=== PATIENT | male | born 1985 | race African-American/Black ===

== ENCOUNTER 2017-04-19 23:50 | Emergency (ER) | payer SELFPAY ==
[~2017-04-19] VITALS: Ht 185.4 cm; Wt 73.0 kg
[2017-04-20] MEDS ORDERED: BACITRACIN ZINC OINT UDPKT TOP ONE (01:45)
[2017-04-20 02:05] VITALS: BP 114/66
[2017-04-20] MEDS ORDERED: TETANUS, DIPHTHERIA, PERTUSSIS VAC/PF 0.5ML (>7YR OLD) IM ONE (02:15)
== END 2017-04-20 02:40 | disposition home or self-care (01) ==
LOC: ER 23:50
DX: S90.822A Blister (nonthermal), left foot, initial encounter (principal); X58.XXXA Exposure to other specified factors, initial encounter; Y93.89 Activity, other specified; Y99.8 Other external cause status; Y92.89 Other specified places as the place of occurrence of the external cause
CPT/HCPCS: 90471; 90715; 99283; Z7610

== ENCOUNTER 2018-04-26 15:57 | Emergency (ER) | payer SELFPAY ==
[~2018-04-26] VITALS: Ht 182.9 cm; Wt 89.0 kg
[2018-04-26 16:02] VITALS: BP 124/64
== END 2018-04-26 20:38 | disposition left against medical advice (07) ==
LOC: ER 15:57
DX: L08.9 Local infection of the skin and subcutaneous tissue, unspecified (principal); Z53.21 Procedure and treatment not carried out due to patient leaving prior to being seen by health care provider